=== PATIENT | male | born 1945 | race Caucasian/White ===

== ENCOUNTER 2021-05-11 06:21 | Day surgery (SDC) | payer MEDICARE, OTHER, SELFPAY ==
[2021-04-22 05:44] VITALS: BMI 28.2
[2021-05-11] VITALS (10 sets, daily range): BP systolic 101–156; BP diastolic 67–90; PULSE 79–95; RESP 16; TEMP 36.5–37.2; O2SAT 94–100; BMI 27.0
--- NOTE | 2021-05-11 06:24 | HP.PCM_ITS ---
History and Physical Date of Admission: 05/11/21 Intake Visit Reasons: C-SCOPE Allergies adhesive tape Adverse Reaction (Verified 04/22/21 14:50) BLISTERS ANTIHISTAMINES Adverse Reaction (Uncoded 09/15/17 07:23) Rash Medications ascorbic acid (vitamin C) [Vitamin C] 1,000 mg PO DAILY 09/15/17 [History Confirmed 09/15/17] aspirin [Adult Aspirin Regimen] 81 mg PO DAILY 09/15/17 [History Confirmed 09/15/17] atorvastatin 40 mg PO QHS 09/15/17 [History Confirmed 09/15/17] cholecalciferol (vitamin D3) [Vitamin D3] 400 unit PO DAILY 09/15/17 [History Confirmed 09/15/17] cyanocobalamin (vitamin B-12) [Vitamin B-12] 1,000 mcg PO DAILY 09/15/17 [History Confirmed 09/15/17] fluticasone propionate 2 spray NASAL DAILY PRN PRN 09/15/17 [History Confirmed 09/15/17] folic acid 1 mg PO DAILY@0800 09/15/17 [History Confirmed 09/15/17] labetalol 200 mg PO BID 09/15/17 [History Confirmed 09/15/17] lisinopril 10 mg PO DAILY 09/15/17 [History Confirmed 09/15/17] niacin [Niaspan] 1,000 mg PO DAILY 09/15/17 [History Confirmed 09/15/17] pyridoxine (vitamin B6) 100 mg PO DAILY 09/15/17 [History Confirmed 09/15/17] vitamin E 400 unit PO DAILY 09/15/17 [History Confirmed 09/15/17] [facility] Medical History (Updated 04/22/21 @ 14:[address] Carlos Carlson MD) CAD (coronary artery disease) HTN (hypertension) Myocardial infarction Osteoarthritis Surgical History (Updated 04/22/21 @ 14:43 by Danette Curry) History of cardiac catheterization (~1999) History of cataract extraction History of cholecystectomy History of colonoscopy (~2016) History of heart artery stent (~1999) History of heart artery stent (~2001) History of heart artery stent (~2005) History of heart artery stent History of intraocular lens implant History of left inguinal hernia repair Family History (Updated 04/22/21 @ 14:43 by Danette Curry) Father Heart disease Mother Heart disease Social History Smoking Status: Former smoker HPI HPI HPI: DARION VILLALPANDO, is a 75 M who presents to the office today for ongoing surgical discussion regarding personal history of multiple colon polyps and surveillance colonoscopy. September 15, 2017 I assisted him with a colonoscopy and hot snare polypectomy x3. Pancolonic diverticulosis was identified. Descending and proximal sigmoid and rectal polyps were identified all treated with snare cautery resection. Fortunately pathology demonstrated tubular adenomas for each 1. He has no complaints today. Although he had 2 previous heart attacks and has 4 coronary stents all of this was prior to 2005. He is enjoying a very good quality of life. No bright red blood per rectum or melena. No abdominal pain. No history of DVT. He has received the COVID-19 vaccination. ROS General General: No weight change, appetite, fatigue, colon cancer, breast cancer or weakness HEENT HEENT: No difficulty swallowing, eye injury, eye surgery, swollen glands or hoarseness Endo Endocrine: No thyroid disease, diabetes mellitus, thyroid cancer, Hair loss, heat intolerance or cold intolerance Musc Musculoskeletal: Yes arthritis; No back problems, rheumatoid arthritis, gout or joint pain Cardio Cardiovascular: Yes heart disease, heart attack and heart stent; No murmur, pacemaker, atrial fibrillation, high blood pressure, palpitations, shortness of breat with exertion or chest pain Psych Psychiatric: No depression, anxiety or hearing voices Resp Respiratory: No shortness of breath, No sleep apnea, No cough, No COPD, No asthma, No emphysema and No wheezing Gastro Gastrointestinal: No abdominal pain, No nausea or vomiting, No diarrhea, No constipation, No blood in stool, No acid reflux, No hemorrhoids, No ulcers, No gallbladder problem and No black,tarry stools Gadiel Hematologic: Yes blood thinners, No blood disorders, No bleeding, No anemia and No blood clots Neuro Neurologic: No weakness Exam Const General: cooperative and healthy appearing Nutritional Appearance: average body habitus Orientation: alert and awake [facility] Head: normal to inspection Chest Chest palpation & inspection: normal inspection of the chest Resp Effort & Inspection: normal respiratory effort Auscultation: clear to auscultation bilaterally Cardio Rate: regular rate Rhythm: regular rhythm GI Palpation: soft and no hepatosplenomegaly Auscultation: normal bowel sounds Skin General: no rashes or lesions noted Neuro Cognition: normal cognition Extrem General: clubbing, cyanosis or edema noted Psych Appearance: grossly normal COVID (Procedure Consent) Procedure Criteria Procedure Criteria: Yes Elective The surgeon/proceduralist and patient have discussed in detail the risk of exposure to and/or potential harm posed by the COVID-19 virus with having a surgery/procedure at this time versus the risk of delaying the surgery/procedure. It is not possible to know either the risk of delaying the surgery or procedure or chance of getting an infection with perfect accuracy, but a joint decision was made between the patient and the surgeon/proceduralist to proceed at this time with the scheduled surgery/procedure as indicated on the consent form. Assessment and Plan (1) Personal history of colonic polyps: Status: Acute Plan Details Additional Comments: Patient with a personal history of colon polyps. I recommend to him a colonoscopy possible biopsy or polypectomy as indicated. He did well previously with 90 mg Demerol and 4 mg of Versed. He has had an opportunity to ask and have questions answered. We will schedule procedure at his discretion. Carlos Carlson M.D., F.A.C.S. Coding Level of Care Code Off vis,est,level 2 Diagnoses Personal history of colonic polyps Z86.010 I have re-examined the patient. There are no clinical changes since date of exam.
[2021-05-11] MEDS: Lactated Ringers 1,000 ML 100 ML IV (06:52)
--- NOTE | 2021-05-11 13:11 | OP.CCLET_ITS ---
05/11/2021 James Colon Re : Colonoscopy procedure for Ari Childress Dear Darlene This procedure was performed on Tuesday, May 11, 2021. My impressions and recommendations are as follows: Impressions : - Non-thrombosed internal hemorrhoids, internal hemorrhoids that prolapse with straining, but spontaneously regress to the resting position (Grade II) and enlarged prostate found on digital rectal exam. - The examination was otherwise normal. - No specimens collected. Recommendations : - Discharge patient to home. - Resume previous diet. - Continue present medications. - Repeat colonoscopy in 5 years for surveillance. My findings are described in the full procedure note, which is enclosed. If I can be of further assistance, please feel free to contact me at Doctor phone number(s): Work: . Sincerely, Carlos Carlson MD 05/11/2021 8:00:47 AM This report has been signed electronically.
--- NOTE | 2021-05-11 13:11 | OP.COLON_ITS ---
Patient Name: Ari Childress Procedure Date: 05/11/2021 7:30 AM Date of : 1945 Age: 75 Procedure: Colonoscopy Indications: High risk colon cancer surveillance: Personal history of colonic polyps Providers: Carlos Carlson MD Medicines: Midazolam 4 mg IV, Meperidine 100 mg IV Patient Profile: Last Colonoscopy: September 2017. Complications: No immediate complications. Procedure: Pre-Anesthesia Assessment: - Prior to the procedure, a History and Physical was performed, and patient medications and allergies were reviewed. The patient's tolerance of previous anesthesia was also reviewed. The risks and benefits of the procedure and the sedation options and risks were discussed with the patient. All questions were answered, and informed consent was obtained. Prior Anticoagulants: The patient has taken aspirin, last dose was 1 day prior to procedure. ASA Grade Assessment: II - A patient with mild systemic disease. After reviewing the risks and benefits, the patient was deemed in satisfactory condition to undergo the procedure. After I obtained informed consent, the scope was passed under direct vision. Throughout the procedure, the patient's blood pressure, pulse, and oxygen saturations were monitored continuously. The pediatric colonoscope was introduced through the anus and advanced to the cecum, identified by appendiceal orifice and ileocecal valve. The colonoscopy was performed without difficulty. The patient tolerated the procedure well. The quality of the bowel preparation was good. The ileocecal valve and the appendiceal orifice were photographed. Moderate Sedation: Moderate (conscious) sedation was personally administered by the endoscopist. The following parameters were monitored: oxygen saturation, heart rate, blood pressure, and response to care. Total physician intraservice time was 15 minutes. Scope In: 7:42:45 AM Scope Withdrawal Time 0 hours 4 minutes 50 seconds Scope Out: 7:53:06 AM Total Procedure Duration Time 0 hours 10 minutes 21 seconds Findings: The digital rectal exam findings include non-thrombosed internal hemorrhoids, internal hemorrhoids that prolapse with straining, but spontaneously regress to the resting position (Grade II) and enlarged prostate. The exam was otherwise without abnormality. Impression: - Non-thrombosed internal hemorrhoids, internal hemorrhoids that prolapse with straining, but spontaneously regress to the resting position (Grade II) and enlarged prostate found on digital rectal exam. - The examination was otherwise normal. - No specimens collected. Recommendation: - Discharge patient to home. - Resume previous diet. - Continue present medications. - Repeat colonoscopy in 5 years for surveillance. Procedure Code(s): --- Professional --- 17309, Colonoscopy, flexible; diagnostic, including collection of specimen(s) by brushing or washing, when performed (separate procedure) 96750, 59, Moderate sedation services provided by the same physician or other qualified health care support representative performing the diagnostic or therapeutic service that the sedation supports, requiring the presence of an independent trained observer to assist in the monitoring of the patient's level of consciousness and physiological status; initial 15 minutes of intraservice time, patient age 5 years or older Diagnosis Code(s): --- Professional --- Z86.010, Personal history of colonic polyps K64.1, Second degree hemorrhoids N40.0, Benign prostatic hyperplasia without lower urinary tract symptoms CPT copyright 2017 [employer]. All rights reserved. The codes documented in this report are preliminary and upon death surveys coder review may be revised to meet current compliance requirements. Carlos Carlson MD 05/11/2021 8:00:47 AM This report has been signed electronically. Number of Addenda: 0 Note Initiated On: 05/11/2021 7:30 AM
== END 2021-05-11 09:22 ==
LOC: EN 06:21 → AC 06:22
PROVIDERS: PCP Internal Medicine; Referring Provider Surgery; Visit Provider Surgery
PROC: 0DJD8ZZ Inspection of Lower Intestinal Tract, Via Natural or Artificial Opening Endoscopic (ICD-10-PCS; CPT 45378; principal; 2021-05-11 07:25)
DX: Z12.11 Encounter for screening for malignant neoplasm of colon (principal); K64.1 Second degree hemorrhoids; I25.10 Atherosclerotic heart disease of native coronary artery without angina pectoris; I10 Essential (primary) hypertension; N40.0 Benign prostatic hyperplasia without lower urinary tract symptoms; I25.2 Old myocardial infarction; Z86.010 Personal history of colon polyps; Z95.5 Presence of coronary angioplasty implant and graft; Z87.891 Personal history of nicotine dependence; Z79.899 Other long term (current) drug therapy; Z79.82 Long term (current) use of aspirin
CPT/HCPCS: 45378; 99152; 99153; J7120